=== PATIENT | female | born 1955 | race Caucasian/White ===

== ENCOUNTER → 2020-06-20 09:17 | Outpatient (CLI) | payer MEDICARE, SELFPAY ==
--- NOTE | ~2020-06-20 | MM_ITS ---
EXAMINATION: MM screening qing BI w sheri HISTORY: Screening mammogram TECHNIQUE: Craniocaudal and mediolateral oblique 3-D tomosynthesis images were obtained and synthetic 2-D images were generated. CAD analysis was submitted and interpreted. COMPARISON: 05/16/2019, 05/01/2018, 04/15/2017, 03/15/2013 BREAST PARENCHYMAL COMPOSITION: There are scattered areas of fibroglandular density. FINDINGS: RIGHT BREAST: A mass is present in the middle third of the outer breast. Prior diagnostic workup demo nstrated clustered microcysts in this region however there appears to be interval increase in size. LEFT BREAST: There is no evidence of suspicious mass, calcification, or architectural distortion to s uggest malignancy. There has been no significant interval change. IMPRESSION: 1. Right breast mass. 2. Additional mammographic views and possible breast ultrasound are recommended. BI-RADS Category 0: Incomplete: Needs additional imaging evaluation. Reviewed, dictated and finalized at location A. IMPRESSION: 1. Right breast mass. 2. Additional mammographic views and possible breast ultrasound are recommended . BI-RADS Category 0: Incomplete: Needs additional imaging evaluation.
--- NOTE | ~2020-06-20 | DEXA_ITS ---
Bone Density Report Name: Rebekah Chiu Age: 64 Sex: Female Ethnicity: White Date of : 1955 Indication: postmenopausal; screening for osteoporosis; Referring Provider: Melody, Fanta Ibarra Study: Bone densitometry was performed. Exam Date: June 20, 2020 Accession number: [id number] Bone Density: Region BMD T-score Z-score Classification AP Spine (L1-L4) 1.023 -0.2 1.6 Normal Femoral Neck (Left) 0.757 -0.8 0.7 Normal Total Hip (Left) 0.917 -0.2 1.1 Normal Femoral Neck (Right) 0.794 -0.5 1.1 Normal Total Hip (Right) 0.954 0.1 1.4 Normal Total Hip Mean 0.936 -0.1 1.3 Normal World Health Organization criteria for BMD impression classify patients as: Normal (T-score at or above -1.0), Osteopenia (T-score between -1.0 and -2.5), or Osteoporosis (T-score at or below -2.5). 10-year Fracture Risk: FRAX not reported because: All T-scores for Spine Total, Hip Total, Femoral Neck at or above -1.0 Previous Exams: Region Exam Age BMD T-score BMD Change BMD Change Date g/cm2 vs Baseline vs Previous AP Spine(L1-L4) 06/20/2020 64 1.023 -0.2 -0.017 -0.017 04/02/2016 60 1.040 -0.1 0.000 -0.006 03/09/2014 58 1.047 0.0 0.007 0.017 03/04/2010 54 1.030 -0.2 -0.010 -0.010 03/03/2007 51 1.040 -0.1 Total Hip(Left) 06/20/2020 64 0.917 -0.2 -0.134* -0.064* 04/02/2016 60 0.981 0.3 -0.071* 0.011 03/09/2014 58 0.969 0.2 -0.082* -0.039* 03/04/2010 54 1.008 0.5 -0.043* -0.043* 03/03/2007 51 1.051 0.9 Total Hip(Right) 06/20/2020 64 0.954 0.1 -0.063* -0.055* 04/02/2016 60 1.009 0.6 -0.007 0.019 03/09/2014 58 0.990 0.4 -0.027 -0.027 03/04/2010 54 1.017 0.6 0.000 0.000 03/03/2007 51 1.017 0.6 *Denotes significance at 95% confidence level, LSC for AP Spine = 0.022 g/cm2, LSC for Total Hip = 0.027 g/cm2 Clinical Information Provided by Patient: Patient maximum height was 61.5 Menopause Age: 50 Onset of menses at age 11 Number of children 0 Impression: The patient has normal bone mass. The BMD for the Total Hip(Left) decreased, changing by -0.064 since the last DXA exam. The BMD for the Total Hip(Right) decreased, changing by -0.055 since the last DXA exam. Disc
== END ==
PROVIDERS: PCP Physician Assistant; Visit Provider Nurse Practitioner Obstetrics & Gynecology
DX: Z12.31 Encounter for screening mammogram for malignant neoplasm of breast (principal); Z78.0 Asymptomatic menopausal state; R92.8 Other abnormal and inconclusive findings on diagnostic imaging of breast
CPT/HCPCS: 77063; 77067; 77080

== ENCOUNTER → 2020-07-08 08:56 | Outpatient (CLI) | payer MEDICARE, SELFPAY ==
--- NOTE | ~2020-07-08 | MMUS_ITS ---
EXAMINATION: MM diagnostic mammo unilat RT, US breast RT limited HISTORY: Right breast mass in middle third of outer breast on 06/20/2020 screening mammogram examinati on TECHNIQUE: Additional 3-D tomosynthesis images of the right breast were performed and synthetic 2-D i mages were generated. CAD analysis was submitted and interpreted. High resolution upper outer quadran t and lower outer quadrant right breast ultrasound was performed. COMPARISON: 06/20/2020 bilateral digital screening mammogram FINDINGS: MAMMOGRAPHIC FINDINGS: An approximately 7 mm circumscribed opacity is noted in the outer mid right breast at mid depth. Ther e is suggestion of a 3 mm mass in the lower outer right breast. Additional small masses are not excluded. Ultrasound of the upper outer and lower-outer right breast was performed. ULTRASOUND: 9:00 3.5 cm from nipple: 5 x 6.4 x 7.5 mm simple cyst with through transmission and posterior enhance ment 10:00 3.5 cm from nipple: 2.0 x 2.3 mm sonolucency 10-11 o'clock 3.5 cm from nipple: Parallel circumscribed hypoechoic approximately 2.2 x 4.8 x 2.4 mm hypoechoic lesion without internal vascularity or posterior shadowing. IMPRESSION: 1. Probable benign findings 2. 6 month diagnostic right mammogram and targeted right breast ultrasound follow-up are recommended. BI-RADS category 3, probably benign findings. Reviewed, dictated and finalized at location A. IMPRESSION: 1. Probable benign findings 2. 6 month diagnostic right mammogram and targeted right breast ultrasound foll ow-up are recommended. BI-RADS category 3, probably benign findings.
== END ==
PROVIDERS: Visit Provider Nurse Practitioner Obstetrics & Gynecology
DX: N63.10 Unspecified lump in the right breast, unspecified quadrant (principal); R92.8 Other abnormal and inconclusive findings on diagnostic imaging of breast
CPT/HCPCS: 76642; 77065

== ENCOUNTER → 2021-03-05 08:15 | Outpatient (CLI) | payer MEDICARE, SELFPAY ==
--- NOTE | ~2021-03-05 | MMUS_ITS ---
EXAMINATION: MM diagnostic qing RT w sheri, US breast RT limited HISTORY: Six-month follow-up for probably benign TECHNIQUE: Craniocaudal, mediolateral, and mediolateral oblique 3-D tomosynthesis images of the right breast were performed and synthetic 2-D images were generated. CAD analysis was submitted and interp reted. High resolution limited right breast ultrasound was performed. COMPARISON: 09/04/2020, 07/08/2020, 06/20/2020, 05/08/2019 BREAST PARENCHYMAL COMPOSITION: There are scattered areas of fibroglandular density. FINDINGS: MAMMOGRAPHIC FINDINGS: There is a 7 mm oval, obscured, equal density mass in the middle third of the outer breast at the 9:0 0 location 4 cm from the nipple which appears to have decreased in size since the prior examination. ULTRASOUND: There is a stable 6 mm x 3 mm oval, circumscribed, parallel, hypoechoic mass with no posterior featur es or internal vascularity at the 10:00 location 3.5 cm from the nipple. A 3 mm cyst is noted at the 9:00 location 3.5 cm from the nipple. IMPRESSION: 1. Probably benign right breast mass 10:00 location. 2. Recommend 6 month follow-up right diagnostic mammogram and ultrasound. BI-RADS category 3, probably benign findings. Reviewed, dictated and finalized at location A. IMPRESSION: 1. Probably benign right breast mass 10:00 location. 2. Recommend 6 month follow-up right diagnostic mammogram and ultrasound. BI-RADS category 3, probably benign findings.
== END ==
PROVIDERS: PCP Physician Assistant; Visit Provider Obstetrics & Gynecology
DX: N63.11 Unspecified lump in the right breast, upper outer quadrant (principal)
CPT/HCPCS: 76642; 77061; 77065; G0279

== ENCOUNTER → 2021-09-07 08:18 | Outpatient (CLI) | payer MEDICARE, SELFPAY ==
--- NOTE | ~2021-09-07 | MMUS_ITS ---
EXAMINATION: MM diagnostic qing BI w sheri, US breast RT limited HISTORY: Six-month follow-up for probably benign right breast mass TECHNIQUE: Craniocaudal, mediolateral, and mediolateral oblique 3-D tomosynthesis images of the right breast were performed and synthetic 2-D images were generated. CAD analysis was submitted and interp reted. High resolution limited right breast ultrasound was performed. COMPARISON: 03/05/2021, 09/04/2020, 07/08/2020, 06/20/2020, 05/16/2019 BREAST PARENCHYMAL COMPOSITION: There are scattered areas of fibroglandular density. FINDINGS: MAMMOGRAPHIC FINDINGS: Left breast: There is no evidence of suspicious mass, calcification, or architectural distortion to suggest malignancy. There has been no suspicious interval change. Right breast: The previously described obscured equal density mass in the middle third of the outer r ight breast has decreased in size since the prior examination. No new suspicious mass, calcification, or architectural distortion are identified. ULTRASOUND: A 3 mm round, circumscribed, hypoechoic mass with no posterior features or internal vascularity at th e 10:00 location 3.5 cm from the nipple has decreased in size since the comparison examination. IMPRESSION: 1. Right breast mass with decrease in size, consistent with a benign finding. 2. Recommend routine screening mammography in one year. BI-RADS Category 2: Benign finding(s). Reviewed, dictated and finalized at location A. H CARPENTER IMPRESSION: 1. Right breast mass with decrease in size, consistent with a benign finding. 2. Recommend routine screening mammography in one year. BI-RADS Category 2: Benign finding(s).
== END ==
PROVIDERS: Visit Provider Obstetrics & Gynecology
DX: R92.8 Other abnormal and inconclusive findings on diagnostic imaging of breast (principal)
CPT/HCPCS: 76642; 77062; 77066; G0279

== ENCOUNTER 2022-02-17 13:05 | Emergency (ER) | payer MEDICARE, SELFPAY ==
--- NOTE | ~2022-02-17 | XR_ITS ---
XR forearm RT 2V 02/17/2022 13:48 Indication: Status post fall. Right arm pain Procedure: 2 views right forearm Comparison: No prior studies for comparison. Findings: There is a nondisplaced radial neck fracture. Small joint effusion. No other fracture ident ified. No foreign bodies. Impression: 1: Nondisplaced radial neck fracture. Reviewed, dictated and finalized at location A. Impression: 1: Nondisplaced radial neck fracture.
[2022-02-17 13:20] VITALS: BP 145/101; PULSE 74; RESP 16; TEMP 36.4; O2SAT 98
--- NOTE | 2022-02-17 13:21 | ED.UPPEXIN ---
HPI - Extremity Injury (Upper) General Chief Complaint: Extremity Injury, Upper Stated Complaint: right arm pain Time Seen by Provider: 02/17/22 13:26 Source: patient Mode of arrival: ambulatory Limitations: no limitations History of Present Illness HPI narrative: 66 y/o female presented for c/o right arm pain after fall last night at 10pm. States she tripped and fell landing on her bottom. Does not know how she fell or landed, She states she tried not to brace herself and pulled the right arm and towards her chest but states she may have extended the arm and struck it on the wall. Rates pain a 4 out of 10 She denies hitting her head or loss of consciousness. Denies decreased range of motion, bruising or swelling, denies numbness tingling or weakness of the extremity. She took 1 dose of regular Tylenol last night and applied ice. Related Data Allergies Allergy/AdvReac Type Severity Reaction Status Date / Time No Known Allergies Allergy Unknown Verified 02/17/22 13:23 Review of Systems Review of Systems: CONSTITUTIONAL: Denies body aches, fever, chills CARDIOVASCULAR: Denies chest pain, palpitations, or edema. RESPIRATORY: Denies cough or dyspnea. SKIN: Denies rash, itching, or wounds. MUSCULOSKELETAL: Reports right arm pain NEUROLOGIC: Denies headache, numbness, tingling, or weakness. All systems reviewed & are unremarkable except as noted in HPI and below PMFSH Past Medical History Medical History Diverticulosis History of bronchitis Hyperlipidemia Hypothyroidism, unspecified Osteoarthritis of both hands Seasonal allergies Sinusitis Vitreous floaters of left eye Surgical History Surgical History History of knee surgery Hx of rotator cuff surgery Family History Family History Mother Heart disease Father No problems noted. Social History Social History Smoking status: Never smoker Alcohol intake: never Substance use: never Gender identity (if verbalized by the patient): Female Comments At time of signature, I have reviewed and agree with nursing past medical, surgical, social and family history unless otherwise noted. Please see nursing chart for further information. There is no relevant family history pertinent to the presenting complaint Exam Narrative: GENERAL: Well-appearing, well-nourished, and in no acute distress. HEAD: Normocephalic, atraumatic. CHEST: Speaks in full sentences. No respiratory distress. HEART: Regular rate and rhythm. Normal and equal peripheral pulses. EXTREMITIES: RUE has normal strength and sensation, normal range of motion endorses pain with twisting wrist movement and bend at elbow. Right distal radial side of forearm tender to palpation. No edema or ecchymosis. No open wounds, skin tenting, or obvious deformity; alignment normal, pulse palpable and equal bilaterally, skin warm, dry, pink. Capillary refill less than 3 seconds. SKIN: Warm, dry, no rash. NEURO: Alert and oriented x3. Course Course Emergency Course: Patient is aware of diagnosis, understands and agrees to treatment plan. Anticipatory guidance given. Patient agrees to follow-up as directed and is aware of reasons to seek care at the emergency department. Portions of this record may have been created with voice recognition software Level of Care: Express Care Visit Vital Signs Vital signs: Vital Signs Temperature 97.5 F L 02/17/22 13:20 Pulse Rate 74 02/17/22 13:20 Respiratory Rate 16 02/17/22 13:20 Blood Pressure 145/101 H 02/17/22 13:20 Pulse Oximetry 98 02/17/22 13:20 Temperature 97.5 F L 02/17/22 13:20 Pulse Rate 74 02/17/22 13:20 Respiratory Rate 16 02/17/22 13:20 Blood Pressure 145/101 H 02/17/22 13
== END 2022-02-17 14:50 | disposition home or self-care (01) ==
PROVIDERS: Emergency Provider Nurse Practitioner Family; PCP Family Medicine
DX: S52.134A Nondisplaced fracture of neck of right radius, initial encounter for closed fracture (principal); W01.0XXA Fall on same level from slipping, tripping and stumbling without subsequent striking against object, initial encounter; E78.5 Hyperlipidemia, unspecified; E03.9 Hypothyroidism, unspecified; M19.042 Primary osteoarthritis, left hand; M19.041 Primary osteoarthritis, right hand; H43.392 Other vitreous opacities, left eye
CPT/HCPCS: 29105; 73090; 99214; A4565; G0463

== ENCOUNTER → 2022-09-08 10:13 | Outpatient (CLI) | payer MEDICARE, SELFPAY ==
--- NOTE | ~2022-09-08 | MM_ITS ---
EXAMINATION: MM screening qing BI w sheri HISTORY: Screening TECHNIQUE: Craniocaudal and mediolateral oblique 3-D tomosynthesis images were obtained and synthetic 2-D images were generated. CAD analysis was submitted and interpreted. COMPARISON: Comparison to multiple prior studies sequentially, with oldest reviewed study dated 05/01. BREAST PARENCHYMAL COMPOSITION: There are scattered areas of fibroglandular density. FINDINGS: There is no evidence of suspicious mass, calcification, or architectural distortion to sugg est malignancy in either breast. There has been no suspicious interval change. IMPRESSION: 1. No mammographic evidence of malignancy. 2. Recommend routine screening mammography in one year. BI-RADS Category 1: Negative Reviewed, dictated and finalized at location A. GER MANAGING
== END ==
PROVIDERS: PCP Family Medicine; Visit Provider Nurse Practitioner Obstetrics & Gynecology
DX: Z12.31 Encounter for screening mammogram for malignant neoplasm of breast (principal)
CPT/HCPCS: 77063; 77067

== ENCOUNTER 2022-09-21 13:11 | Outpatient (CLI) | payer MEDICARE, SELFPAY ==
[2022-09-21 14:46] LABS: Influenza A QL RT-PCR Negative (Negative); Influenza B QL RT-PCR Negative (Negative); RSV RNA, RT-PCR Negative (Negative); SARS-CoV-2 RNA PCR Positive
== END 2022-09-21 13:12 | disposition home or self-care (01) ==
PROVIDERS: PCP Family Medicine; Visit Provider Physician Assistant
DX: U07.1 COVID-19 (principal)
CPT/HCPCS: 87637

== ENCOUNTER 2023-07-18 06:09 | Day surgery (SDC) | payer MEDICARE, SELFPAY ==
[2023-04-13 14:59] VITALS: BMI 32.8
[2023-06-22 13:13] VITALS: BMI 34.9
--- NOTE | 2023-07-15 14:03 | WPDANESEPPF ---
Anes - Initial Pre Proc Eval Procedure: Operation Date: 07/18/23 09:00 Proposed Procedures p Screening Colonoscopy - Everette Encarnacion MD Date/Time: 07/15/23 14:03 Surgeon: Everette Encarnacion MD Pre Op Diagnosis: Neoplasm Screening Patient Data Age: 67 Gender: F Height: 1.52 m Weight: 81 kg Allergies Allergy/AdvReac Type Severity Reaction Status Date / Time sulfamethoxazole Allergy Severe Hives Verified 07/18/23 07:25 [From Bactrim] trimethoprim [From Bactrim] Allergy Severe Hives Verified 07/18/23 07:25 Home Medications Medication Instructions Recorded Confirmed Type calcium carb 300 mg-D3 20 mcg-mag 1 tablet PO DAILY 03/10/22 07/18/23 History ox 25 mg-psychologist research assistant 0.5 [id number] tablet (Caltrate-D3 Plus Minerals) mecobalamin (vitamin B12) 1,000 500 mcg PO DAILY 03/10/22 07/18/23 History mcg chewable tablet levothyroxine 50 mcg tablet 50 mcg PO DAILY #90 tabs 05/30/23 07/18/23 Rx simvastatin 40 mg tablet See Rx Instructions .Route 06/02/23 07/18/23 Rx .COMPLEX #100 tabs calcium polycarbophil 625 mg 1,250 mg PO DAILY 06/22/23 07/18/23 History tablet (Fiber (calcium polycarbophil)) Patient hx anesthesia problems: none Family hx anesthesia problems: none Results Review: All pre-operative results and documents have been reviewed as part of the pre-operative evaluation. [facility] Past Medical History Medical History (Updated 07/18/23 @ 08:14 by Everette Encarnacion MD) Diverticulosis History of adverse reaction to anesthesia Hyperlipidemia Hypothyroidism, unspecified Osteoarthritis of both hands Right radial fracture Seasonal allergies Sinusitis UTI (urinary tract infection) Vitreous floaters of left eye Surgical History Surgical History History of knee surgery Hx of rotator cuff surgery Family History Family History Mother Heart disease Father No problems noted. Other Asthma Bladder cancer COPD (chronic obstructive pulmonary disease) Diabetes mellitus Hypertension Social History Social History (Reviewed 03/16/23 @ 10:02 by LUISA Gonzalez Smoking status: Never smoker Second hand tobacco smoke exposure: No Alcohol intake: never Substance use: never Substance use type: does not use Lack of Transportation: No Lack of Food: Never True Current Housing: I Have Housing Concerned About Future Housing: No Difficulty Paying Gas/Electric Bills: No Difficulty Paying for Meds: No Currently Unemployed: No Education: High School Diploma/GED Difficulty w/ Childcare or Family Care: No Living arrangements: with family Occupation/Education: occupation Gender identity (if verbalized by the patient): Female Spiritual care concerns: No Agree to blood products: Yes Anes - Eval Final PreProcedure Day of Procedure 07/15/23 14:03 Patient weight: obese Heart: regular rate and rhythm Lungs: clear to auscultation Airway: Mallampati scale class II Neurological: alert and oriented Last oral intake: >/= 8 hours ASA classification: II Emergent: no Anesthetic plan: proceed Anesthesia type and monitoring: general GIVS and standard monitoring Results Review: All pre-operative results and documents have been reviewed as part of the pre-operative evaluation. Informed Consent: The patient's anesthetic plan and its attendant risks and benefits were discussed with the patient/family/POA. Questions were solicited and answers provided to the satisfaction of the patient/family/POA.
[2023-07-18 07:31] VITALS: BP 133/85; PULSE 80; RESP 18; TEMP 36.7; O2SAT 100; BMI 34.4
[2023-07-18] MEDS: LACTATED RINGERS 1,000 ML 150 ML IV CONT (07:43)
--- NOTE | 2023-07-18 08:13 | PM.HPGS ---
History of Present Illness History of Present Illness Consent: Risks, benefits, and alternatives have been discussed and questions answered. Patient agrees to proceed with procedure. Chief complaint: Neoplasm Screening Narrative: Rebekah Chiu is a 67 year old female Presents for screening colonoscopy. Patient's current weight is are normal. Patient denies abdominal pain. Has had no bleeding. Family history is noncontributory. This colonoscopy 10 years ago was unremarkable. Review of Systems Review of Systems: Review of systems noncontributory. [facility] Past Medical History Medical History (Updated 07/18/23 @ 08:14 by Everette Encarnacion MD) Diverticulosis History of adverse reaction to anesthesia Hyperlipidemia Hypothyroidism, unspecified Osteoarthritis of both hands Right radial fracture Seasonal allergies Sinusitis UTI (urinary tract infection) Vitreous floaters of left eye Surgical History Surgical History History of knee surgery Hx of rotator cuff surgery Family History Family History Mother Heart disease Father No problems noted. Other Asthma Bladder cancer COPD (chronic obstructive pulmonary disease) Diabetes mellitus Hypertension Social History Social History Smoking status: Never smoker Second hand tobacco smoke exposure: No Alcohol intake: never Substance use: never Substance use type: does not use Lack of Transportation: No Lack of Food: Never True Current Housing: I Have Housing Concerned About Future Housing: No Difficulty Paying Gas/Electric Bills: No Difficulty Paying for Meds: No Currently Unemployed: No Education: High School Diploma/GED Difficulty w/ Childcare or Family Care: No Living arrangements: with family Occupation/Education: occupation Gender identity (if verbalized by the patient): Female Spiritual care concerns: No Agree to blood products: Yes Meds Home Medications and Allergies Home Medications Medication Instructions Recorded Confirmed Type calcium carb 300 mg-D3 20 mcg-mag 1 tablet PO DAILY 03/10/22 07/18/23 History ox 25 mg-endoscopic technician 0.5 [id number] tablet (Caltrate-D3 Plus Minerals) mecobalamin (vitamin B12) 1,000 500 mcg PO DAILY 03/10/22 07/18/23 History mcg chewable tablet levothyroxine 50 mcg tablet 50 mcg PO DAILY #90 tabs 09/11/23 10/30/23 Rx simvastatin 40 mg tablet See Rx Instructions .Route 06/02/23 07/18/23 Rx .COMPLEX #100 tabs calcium polycarbophil 625 mg 1,250 mg PO DAILY 06/22/23 07/18/23 History tablet (Fiber (calcium polycarbophil)) Allergies Allergy/AdvReac Type Severity Reaction Status Date / Time sulfamethoxazole Allergy Severe Hives Verified 07/18/23 07:25 [From Bactrim] trimethoprim [From Bactrim] Allergy Severe Hives Verified 07/18/23 07:25 Vital Signs Vital Signs - 24 hr 07/18/23 07:31 Temperature 98.1 F Pulse Rate 80 Respiratory Rate 18 Blood Pressure 133/85 Pulse Oximetry 100 Oxygen Delivery Room Air Exam Narrative: Cool exam reveals patient signs stable. HEENT exam is unremarkable. Patient is anicteric. Lungs are clear to auscultation and percussion. Sounds. Abdomen bowel sounds are present soft nontender with no organomegaly. The external rectal exam is normal. Assessment and Plan Assessment and plan (1) Encounter for screening colonoscopy: Code(s): Z12.11 - Encounter for screening for malignant neoplasm of colon Status: Acute Assessment and Plan: Patient presents for screening colonoscopy. She appears to be is for colon polyps. Further recommendations may be given after endoscopy.
[2023-07-18 09:08] VITALS: BP 122/81; PULSE 65; RESP 15; O2SAT 95
[2023-07-18 09:18] VITALS: BP 120/78; PULSE 60; RESP 16; O2SAT 100
[2023-07-18 09:28] VITALS: BP 104/90; PULSE 57; RESP 16; O2SAT 100
--- NOTE | 2023-07-18 13:32 | WPDANESPN ---
Anes - Prog Note Post-Op Date/Time: 07/18/23 13:32 Cardiovascular status: normal Respiratory status: normal Airway patency: baseline Mental status: baseline Post-Op hydration status: normal Vital Signs: Last Vital Signs Temp 36.7 C 07/18/23 07:31 Pulse 57 L 07/18/23 09:28 Resp 16 07/18/23 09:28 BP 104/90 07/18/23 09:28 Pulse Ox 100 07/18/23 09:28 O2 Del Method Room Air 07/18/23 09:28 Pain Score (VAS): 0 I/O: Intake & Output 07/17/23 07/18/23 07/18/23 23:59 07:59 15:59 Intake Total 850 Balance 850 Post-procedural complaints: none Patient Feedback: Patient satisfied with anesthetic care. Other Findings: Patient vital signs back to baseline. Patient denies nausea and vomiting. Patient's pain under control. Patient OK for discharge.
== END 2023-07-18 09:41 | disposition home or self-care (01) ==
PROVIDERS: PCP Family Medicine; Visit Provider Internal Medicine Gastroenterology
PROC: 0DJD8ZZ Inspection of Lower Intestinal Tract, Via Natural or Artificial Opening Endoscopic (ICD-10-PCS; CPT 45378; principal; 2023-07-18 09:00)
DX: Z12.11 Encounter for screening for malignant neoplasm of colon (principal); K57.30 Diverticulosis of large intestine without perforation or abscess without bleeding; K64.8 Other hemorrhoids
CPT/HCPCS: 45378

== ENCOUNTER → 2023-09-16 11:06 | Outpatient (CLI) | payer MEDICARE, SELFPAY ==
--- NOTE | ~2023-09-16 | MM_ITS ---
EXAMINATION: MM screening [facility] BI w sheri HISTORY: Screening mammogram TECHNIQUE: Craniocaudal and mediolateral oblique 3-D tomosynthesis images were obtained and synthetic 2-D images were generated. CAD analysis was submitted and interpreted. COMPARISON: Serial mammogram and ultrasound examinations dating back to 06/20/2020 BREAST PARENCHYMAL COMPOSITION: There are scattered areas of fibroglandular density. FINDINGS: There is no evidence of suspicious mass, calcification, or architectural distortion to sugg est malignancy in either breast. There has been no suspicious interval change. IMPRESSION: 1. No mammographic evidence of malignancy. 2. Recommend routine screening mammography in one year. BI-RADS Category 1: Negative Reviewed, dictated and finalized at location A. USION OPERATOR
== END ==
PROVIDERS: PCP Physician Assistant; Visit Provider Nurse Practitioner Obstetrics & Gynecology
DX: Z12.31 Encounter for screening mammogram for malignant neoplasm of breast (principal)
CPT/HCPCS: 77063; 77067

== ENCOUNTER 2024-06-01 10:23 | Outpatient (CLI) | payer MEDICARE, SELFPAY ==
--- NOTE | ~2024-06-01 | DEXA_ITS ---
Bone Density Report Name: TAE MERCER Age: 68 Sex: Female Ethnicity: White Date of : 1955 Indication: postmenopausal; screening for osteoporosis; height loss; history of glucocorticoids; Referring Provider: CHANDNA MOORE Study: Bone densitometry was performed. Exam Date: June 01, 2024 Accession number: [id number] Bone Density: Region BMD T-score Z-score Classification AP Spine(L1-L4) 0.846 -1.8 0.3 Osteopenia Femoral Neck (Left) 0.672 -1.6 0.2 Osteopenia Total Hip (Left) 0.931 -0.1 1.4 Normal Femoral Neck (Right) 0.735 -1.0 0.7 Normal Total Hip (Right) 0.996 0.4 1.9 Normal Total Hip Mean 0.963 0.2 1.7 Normal World Health Organization criteria for BMD impression classify patients as: Normal (T-score at or above -1.0), Osteopenia (T-score between -1.0 and -2.5), or Osteoporosis (T-score at or below -2.5). 10-year Fracture Risk(1): Major Osteoporotic Fracture 15% Hip Fracture 2.5% Reported Risk Factors: [place] (), Neck BMD=0.672, BMI=33.0, glucocorticoids (1) FRAX(R) Version 3.08. Fracture probability calculated for an untreated patient. Fracture probability may be lower if the patient has received treatment. Clinical Information Provided by Patient: Has taken Glucocorticoids Has used the following medications: Calcium Patient maximum height was 61.75 Menopause Age: 49 No regular weight bearing exercise Onset of menses at age 11 Number of children 0 Impression: The patient has low bone mass, based on the Total Spine T-score. The patient has an estimated ten-year risk of hip fracture of 2.5% and an estimated ten-year risk of major fracture of 15%, based on the WHO FRAX algorithm. The patient has risk factors, including: history of glucocorticoid therapy. Discussion: BONE DENSITY IS LOW AT ONE OR MORE SKELETAL SITES. This patient's lowest T-score is low at one or more skeletal sites. It meets the World Health Organization's (WHO) criteria for ?low bone mass? (T-score between -1.0 and -2.5). The patient's 10-year risk of fracture as calculated by FRAX is less than the threshold where pharmacological therapy is recommended by the National Osteoporosis Foundation (NOF). However, all treatment decisions require clinical judgment and consideration of individual patient factors, including patient preferences, comorbidities, previous drug use, risk factors not captured in the FRAX model (e.g., frailty, falls, vitamin D deficiency, increased bone turnover, interval significant decline in bone density) and possible under or overestimation of fracture risk by FRAX. The patient should follow a healthful lifestyle (good nutrition with adequate calcium and vitamin D, and appropriate weight-bearing exercise). Follow-Up: Consider repeating this study in 2 to 3
== END 2024-06-01 10:24 | disposition home or self-care (01) ==
LOC: ANHIMG 10:25
PROVIDERS: PCP Family Medicine; Visit Provider Obstetrics & Gynecology
DX: Z78.0 Asymptomatic menopausal state (principal); M85.88 Other specified disorders of bone density and structure, other site; M85.852 Other specified disorders of bone density and structure, left thigh
CPT/HCPCS: 77080

== ENCOUNTER 2024-09-21 15:39 | Outpatient (CLI) | payer MEDICARE, SELFPAY ==
--- NOTE | ~2024-09-21 | MM_ITS ---
EXAMINATION: MM screening qing BI w sheri HISTORY: Screening mammogram TECHNIQUE: Craniocaudal and mediolateral oblique 3-D tomosynthesis images were obtained and synthetic 2-D images were generated. CAD analysis was submitted and interpreted. COMPARISON: 09/16/2023, 09/08/2022 bilateral screening mammogram examinations BREAST PARENCHYMAL COMPOSITION: There are scattered areas of fibroglandular density. No focal FINDINGS: There is no evidence of suspicious mass, calcification, or architectural distortion to sugg est malignancy in either breast. There has been no suspicious interval change. IMPRESSION: 1. No mammographic evidence of malignancy. 2. Recommend routine screening mammography in one year. BI-RADS Category 1: Negative Reviewed, dictated and finalized at location A. P [facility]
== END 2024-09-21 15:40 | disposition home or self-care (01) ==
LOC: MICIMG 15:42
PROVIDERS: PCP Family Medicine; Visit Provider Student in an Organized Health Care Education/Training Program
DX: Z12.31 Encounter for screening mammogram for malignant neoplasm of breast (principal)
CPT/HCPCS: 77063; 77067